=== PATIENT | female | born 1965 | race Caucasian/White ===

== ENCOUNTER → 2017-04-04 | Outpatient (CLI) | payer OTHER ==
--- NOTE | 2017-04-04 15:11 | XR ---
EXAMINATION TYPE: XR Hip Bilateral Complete DATE OF EXAM: 04/04/2017 CLINICAL HISTORY: Bilateral hip and knee pain with low back pain TECHNIQUE: AP and frogleg views of the bilateral hips were obtained. COMPARISON: None. FINDINGS: There is no acute fracture/dislocation evident in the either hip. The joint space in both femoral acetabular joints appears mildly narrowed in a cephalad direction with acetabular roof minim al sclerosis. Femoral heads maintain their normal rounded contour. Osseous mineralization is within n ormal limits. The overlying soft tissue appears unremarkable. IMPRESSION: 1. There is no acute fracture or dislocation in either hip. 2. Mild bilateral femoral acetabular arthropathy.
--- NOTE | 2017-04-04 15:12 | XR ---
EXAMINATION TYPE: XR knee complete bilateral DATE OF EXAM: 04/04/2017 CLINICAL HISTORY: Bilateral knee pain with no known injury. TECHNIQUE: Three views of the bilateral knees were obtained. COMPARISON: None. FINDINGS: There is no acute fracture/dislocation evident in either knee. The tri-compartment joint spaces appear within normal limits. The overlying soft tissue appears unremarkable. Osseous minerali zation is within normal limits. No focal soft tissue swelling. No radiographic evidence of suprapatel lar joint effusion. IMPRESSION: 1. There is no acute fracture or dislocation in the either knee. 2. Tricompartmental joint spaces are preserved. MR could be performed for evaluation of the menisci a nd ligamentous/other soft tissue structures if clinically indicated
--- NOTE | 2017-04-04 15:13 | XR ---
EXAMINATION TYPE: XR lumbosacral spine min 4V DATE OF EXAM: 04/04/2017 CLINICAL HISTORY: Bilateral hip and knee pain with low back pain and no known injuries. TECHNIQUE: Frontal, lateral, and oblique images of the lumbar spine are obtained. COMPARISON: None FINDINGS: There are 5 lumbar type vertebral bodies identified. The lumbar spine shows satisfactory alignment without evidence of acute fracture or dislocation. Vertebral body heights and disk space he ights are within normal limits. Multilevel mild degenerative disc disease is seen as facet arthropath y at L2-S1. The oblique images demonstrate minimal neural foraminal narrowing at L3-L4 on the right. The overlying soft tissue appears unremarkable. IMPRESSION: 1. No acute fracture or dislocation is seen in the lumbar spine. 2. Mild multilevel degenerative disc disease of the lumbar spine with minimal neural foraminal narrow ing on the right at L3-L4. MR could be performed to evaluate for disc herniation, spinal canal stenos is or neural foraminal narrowing degree.
== END | disposition home or self-care (01) ==
LOC: RADXRMAIN 14:10
PROVIDERS: ATTEND Family Medicine
DX: M99.73 Connective tissue and disc stenosis of intervertebral foramina of lumbar region (principal); M51.37 Other intervertebral disc degeneration, lumbosacral region; M12.852 Other specific arthropathies, not elsewhere classified, left hip; M12.851 Other specific arthropathies, not elsewhere classified, right hip; M25.562 Pain in left knee
CPT/HCPCS: 72110; 73521

== ENCOUNTER → 2017-04-29 | Outpatient (CLI) | payer OTHER ==
--- NOTE | 2017-04-29 16:00 | MR ---
EXAMINATION TYPE: MR lumbar spine wo con DATE OF EXAM: 04/29/2017 COMPARISON: Radiograph which was obtained on April 04, 2017. HISTORY: Low back pain for Unknown time TECHNIQUE: Multiplanar, multisequence images of the lumbar spine were acquired. Minimal intervertebral disc desiccation is identified. The marrow signal is appropriate. There is het erogeneous signal in the vertebral body of S1 which is felt to be due to increased mineralization and correlates with findings on the recent CT scan of the abdomen. Soft tissue structures are unremarkable. T12-L1: No central canal stenosis or foraminal narrowing is identified. L1-L2: Normal disc appearance without desiccation. No herniation, protrusion or disc bulging. No ca nal stenosis is present. Foramina are patent bilaterally. L2-L3: Normal disc appearance without desiccation. Minimal disc bulging is identified posteriorly and into both neural foramina. No canal stenosis is present. Foramina are patent bilaterally. L3-L4: Endplate spurring and minimal disc bulges contribute to mild bilateral neural foraminal narrow ing. No central canal stenosis is seen. L4-L5: There is endplate spurring as well as posterior disc bulge which does not cause significant fo raminal narrowing or central canal stenosis. L5-S1: Normal disc appearance without desiccation. No herniation, protrusion or disc bulging. No ca nal stenosis is present. Foramina are patent bilaterally. Lumbar segments are intact. No paraspinal masses are identified. Conus medullaris has a normal appe arance. IMPRESSION: Mild spondylosis is noted. Findings appear worst at the level of L3-4 were there is minimal endplate spurring and disc bulges which contributes to mild bilateral neural foraminal narrowing.
== END | disposition home or self-care (01) ==
LOC: RADMRIMAIN 14:28
PROVIDERS: ATTEND Family Medicine
DX: M99.73 Connective tissue and disc stenosis of intervertebral foramina of lumbar region (principal); M51.26 Other intervertebral disc displacement, lumbar region; M47.816 Spondylosis without myelopathy or radiculopathy, lumbar region
CPT/HCPCS: 72148

== ENCOUNTER → 2018-02-03 | Outpatient (CLI) | payer OTHER ==
--- NOTE | 2018-02-03 16:35 | MR ---
EXAMINATION TYPE: MR brain wo con DATE OF EXAM: 02/03/2018 COMPARISON: NONE HISTORY: Severe Headaches TECHNIQUE: Multiplanar, multisequence images of the brain and brainstem is performed without intravenous contras t. FINDINGS: Diffusion weighted images demonstrate no evidence of a recent infarct or other diffusion ab normality. There is no extra-axial fluid collection. Punctate focus of nonspecific white matter wolfe ges seen within the left frontal lobe on T2 FLAIR axial fat sat image 21 and within the right parieta l lobe on the same image. Few additional punctate foci of T2/FLAIR hyperintensity are scattered in th e subcortical white matter. The ventricular system and cisternal spaces are normal in size and appear ance. The brain volume is age appropriate. Midline structures demonstrate normal morphology. Partially empty sella turcica is seen. There is un dulation of the optic nerves. Prominent perineural fluid is seen surrounding the optic nerves. The cr aniocervical junction appears within normal limits. The dural venous sinuses appear patent. Mild muco javi thickening is seen within the ethmoid sinuses. The remaining visualized sinuses are clear and the globes are intact. IMPRESSION: 1. Partially empty sella turcica, undulation of the optic nerves course, and prominent perineural flu id surrounding the optic nerves although are nonspecific findings can be seen and increased intracran ial pressure and correlation with ophthalmologic exam is recommended. Additionally if there is clinic al suspicion lumbar puncture with opening pressure could be performed for further evaluation. 2. Mild burden nonspecific white matter change, given the distribution likely related to either heada ches or chronic microangiopathy. Demyelinating disease is considered unlikely.
== END | disposition home or self-care (01) ==
LOC: RADMRIMAIN 14:03
PROVIDERS: ATTEND Family Medicine
DX: R90.89 Other abnormal findings on diagnostic imaging of central nervous system (principal); R51 Headache
CPT/HCPCS: 70551

== ENCOUNTER 2018-05-26 11:35 | Emergency (ER) | payer OTHER ==
[2018-05-26 11:39] VITALS: BP 127/73; PULSE 64; RESP 18; TEMP 97.8
--- NOTE | 2018-05-26 12:35 | ED ---
General Adult HPI - General Chief complaint: Extremity Problem,Nontraumatic Stated complaint: rt arm pain x1 wk Time Seen by Provider: 05/26/18 11:59 Source: patient, RN notes reviewed, old records reviewed Mode of arrival: ambulatory Limitations: no limitations - History of Present Illness Initial comments: 53-year-old female patient past medical history of hyperlipidemia, presents to ED with approximately 4 weeks of myalgias and right upper extremity, primarily in the wrist and hand. Patient reports that her mother recently had a total joint replacement and she has been doing lots of physical exertion at the upper body assisting with activities of daily life. Patient reports that she also wakes up and morning with paresthesias in right hand on occasion. Patient denies any other complaints. Systemic: Pt denies fatigue, fever/chills, rash. Pt denies weakness, night sweats, weight loss. Neuro: Pt denies headache, visual disturbances, syncope or pre-syncope. HEENT: Pt denies ocular discharge or irritation, otalgia, rhinorrhea, pharyngitis or notable lymphadenopathy. Cardiopulmonary: Pt denies chest pain, SOB, heart palpitations, dyspnea on exertion. Abdominal/GI: Pt denies abdominal pain, n/v/d. : Pt denies dysuria, burning w/ urination, frequency/urgency. Denies new onset urinary or bowel incontinence. MSK: Pt denies loss of strength or function in extremities. Neuro: Pt denies new onset weakness. - Related Data Home Medications Medication Instructions Recorded Confirmed Acetaminophen [Tylenol Arthritis] 1,300 mg PO BID PRN 05/26/18 05/26/18 Previous Rx's Medication Instructions Recorded Ibuprofen [Motrin] 600 mg PO Q6HR PRN #40 day 05/26/18 Allergies Allergy/AdvReac Type Severity Reaction Status Date / Time aspirin AdvReac Nausea Verified 05/26/18 11:56 Review of Systems ROS Statement: Those systems with pertinent positive or pertinent negative responses have been documented in the HPI. ROS Other: All systems not noted in ROS Statement are negative. Past Medical History Past Medical History: Diabetes Mellitus, Hyperlipidemia History of Any Multi-Drug Resistant Organisms: None Reported Past Surgical History: Bladder Surgery Additional Past Surgical History / Comment(s): left arm cyst removed Past Psychological History: Anxiety Smoking Status: Never smoker Past Alcohol Use History: None Reported Past Drug Use History: None Reported General Exam - General Exam Comments Initial Comments: Constitutional: NAD, AOX3, Pt has pleasant affect. HEENT: NC/AT, trachea midline, neck supple, no lymphadenopathy. Posterior pharynx non erythematous, without exudates. External ears appear normal, without discharge. Mucous membranes moist. Eyes PERRLA, EOM intact. There is no scleral icterus. No pallor noted. Cardiopulmonary: RRR, no murmurs, rubs or gallops, no JVD noted. Lungs CTAB in anterior and posterior verdugo. No peripheral edema. Abdominal exam: Abdomen soft and non-distended. Abdomen non-tender to palpation in all 4 quadrants. Bowel sounds active in LLQ. No hepatosplenomegaly. No ecchymosis Neuro: CN II-XII grossly intact. No nuchal rigidity. MSK: Upper extremities nontender to palpation. Full active range of motion. Neurovascularly intact. Radial pulse +2 bilaterally. 5 out of 5 strength in biceps and triceps. No posterior calf tenderness bilaterally, homans sign negative bilaterally. Posterior tibialis and radial pulse +2 bilaterally. Sensation intact in upper and lower extremities. Full active ROM in upper and lower extremities, 5/5 stregnth. Limitations: no limitations Course Vital Signs 05/26/18 11:37 Temperature 97.8 F Pulse Rate 64 Respiratory 18 Rate Blood Pressure 127/73 O2 Sat by Pulse 98 Oximetry Medical Decision Making - Medical Decision Making 53-year-old female patient past medical history of hyperlipidemia, presents to ED with approximately 4 weeks of myalgias and right upper extremity, primarily in the wrist and hand. Patient reports that her mother recently had a total joint replacement and she has been doing lots of physical exertion at the upper body assisting with activities of daily life. Patient reports that she also wakes up and morning with paresthesias in right hand on occasion. Patient denies any other complaints. Patient vital signs stable, afebrile. Upper extremities nontender to palpation. Full active range of motion. Neurovascularly intact. Radial pulse +2 bilaterally. 5 out of 5 strength in biceps and triceps. Shared decision making, patient comfortable with no films being taken, will follow-up with primary care physician and orthopedic referral for continued evaluation. Patient prescribed ibuprofen to use for inflammation and pain. Patient will return to ED if new signs or symptoms develop or if condition worsens in any way. Case dsicussed with Dr. Segura. Disposition Clinical Impression: Myalgia, Arm pain Disposition: HOME SELF-CARE Condition: Stable Instructions (If sedation given, give patient instructions): Musculoskeletal Pain (ED) Additional Instructions: Patient to adhere to previously discussed treatment plan and will take medication(s) as directed. Patient to follow up with PCP in 1-2 days. Patient to return to ED if symptoms do not improve. Please follow-up with primary care physician in one to 2 days. Please contact orthopedic surgeon for continued evaluation. Please use scheduled ibuprofen every 6 hours for 3 days. Then use as needed for pain. May want to consider "neutral wrist splints" for possible carpal tunnel. Prescriptions: Ibuprofen [Motrin] 600 mg PO Q6HR PRN #40 day PRN Reason: Pain Is patient prescribed a controlled substance at d/c from ED?: No Referrals: Colton Dukes DO [Primary Care Provider] - 1-2 days Salo Schultz MD [STAFF PHYSICIAN] - 1-2 days
--- NOTE | 2018-05-26 12:47 | ED ---
General Adult HPI - General Chief complaint: Extremity Problem,Nontraumatic Stated complaint: rt arm pain x1 wk Time Seen by Provider: 05/26/18 11:59 Source: patient, RN notes reviewed, old records reviewed Mode of arrival: ambulatory Limitations: no limitations - History of Present Illness Initial comments: Patient reports that she had some mild nausea while taking aspirin. Pt denies any history of serious allergic reactions. Pt states that she has taken motrin in the past without difficulty. - Related Data Home Medications Medication Instructions Recorded Confirmed Acetaminophen [Tylenol Arthritis] 1,300 mg PO BID PRN 05/26/18 05/26/18 Previous Rx's Medication Instructions Recorded Ibuprofen [Motrin] 600 mg PO Q6HR PRN #40 day 05/26/18 Allergies Allergy/AdvReac Type Severity Reaction Status Date / Time aspirin AdvReac Nausea Verified 05/26/18 11:56 Review of Systems ROS Statement: Those systems with pertinent positive or pertinent negative responses have been documented in the HPI. ROS Other: All systems not noted in ROS Statement are negative. Past Medical History Past Medical History: Diabetes Mellitus, Hyperlipidemia History of Any Multi-Drug Resistant Organisms: None Reported Past Surgical History: Bladder Surgery Additional Past Surgical History / Comment(s): left arm cyst removed Past Psychological History: Anxiety Smoking Status: Never smoker Past Alcohol Use History: None Reported Past Drug Use History: None Reported General Exam Limitations: no limitations Course Vital Signs 05/26/18 11:37 Temperature 97.8 F Pulse Rate 64 Respiratory 18 Rate Blood Pressure 127/73 O2 Sat by Pulse 98 Oximetry Disposition Clinical Impression: Myalgia, Arm pain Disposition: HOME SELF-CARE Condition: Stable Instructions (If sedation given, give patient instructions): Musculoskeletal Pain (ED) Additional Instructions: Patient to adhere to previously discussed treatment plan and will take medication(s) as directed. Patient to follow up with PCP in 1-2 days. Patient to return to ED if symptoms do not improve. Please follow-up with primary care physician in one to 2 days. Please contact orthopedic surgeon for continued evaluation. Please use scheduled ibuprofen every 6 hours for 3 days. Then use as needed for pain. May want to consider "neutral wrist splints" for possible carpal tunnel. Prescriptions: Ibuprofen [Motrin] 600 mg PO Q6HR PRN #40 day PRN Reason: Pain Is patient prescribed a controlled substance at d/c from ED?: No Referrals: Colton Dukes DO [Primary Care Provider] - 1-2 days Salo Schultz MD [STAFF PHYSICIAN] - 1-2 days
== END 2018-05-26 13:16 | disposition home or self-care (01) ==
LOC: EC 11:35
DX: M79.18 Myalgia, other site (principal); R20.2 Paresthesia of skin; Z96.60 Presence of unspecified orthopedic joint implant; Z88.6 Allergy status to analgesic agent
CPT/HCPCS: 99283

== ENCOUNTER → 2018-11-07 | Outpatient (CLI) | payer OTHER ==
--- NOTE | 2018-11-07 22:20 | XR ---
EXAMINATION TYPE: XR cervical spine comp DATE OF EXAM: 11/07/2018 TECHNIQUE: Frontal, lateral, oblique, and open mouth view of the cervical spine are obtained. HISTORY: M25.532, M54.2, M25.519 COMPARISON: None FINDINGS: The cervical spine is visualized in its entirety from C1 thru the top of T1 level, there i s grade 1 retrolisthesis C4 on C5 without evidence of acute fracture or dislocation. The pre-vertebr al soft tissue appears within normal limits. The C1-C2 articulation is within normal limits on the o pen mouth view. Vertebral body heights are maintained. Some ossific fusion of the C5 and C6 vertebra are seen. There is moderate to advanced disc space narrowing with mild to moderate spurring C6-C7 lev el. The oblique images are within normal limits. Overlying soft tissue is unremarkable. IMPRESSION: As above.
--- NOTE | 2018-11-07 22:21 | XR ---
EXAMINATION TYPE: XR wrist limited LT DATE OF EXAM: 11/07/2018 CLINICAL HISTORY: Left wrist pain. TECHNIQUE: Frontal and lateral images of the left wrist are obtained. COMPARISON: None FINDINGS: There is no acute fracture/dislocation evident in the left wrist. Mild radiocarpal joint s pace narrowing is seen. Mild narrowing base of first metacarpal. The overlying soft tissue appears u nremarkable. IMPRESSION: As above.
--- NOTE | 2018-11-07 22:22 | XR ---
EXAMINATION TYPE: XR shoulder limited bilateral DATE OF EXAM: 11/07/2018 CLINICAL HISTORY: Bilateral shoulder pain. TECHNIQUE: Two views of the bilateral shoulders are obtained. COMPARISON: None. FINDINGS: There is no acute fracture/dislocation evident in either shoulder. Ciru-nf-[id number] symmet khari narrowing bilateral acromioclavicular joints is seen. Glenohumeral joints are maintained bilatera lly. Still acromion morphology is unremarkable bilaterally. The visualized ribs are intact and unrema rkable bilaterally. IMPRESSION: As above.
== END | disposition home or self-care (01) ==
LOC: RADXRMAIN 16:19
PROVIDERS: ATTEND Internal Medicine
DX: M48.02 Spinal stenosis, cervical region (principal); M43.12 Spondylolisthesis, cervical region; M25.812 Other specified joint disorders, left shoulder; M25.811 Other specified joint disorders, right shoulder; M25.832 Other specified joint disorders, left wrist
CPT/HCPCS: 72050

== ENCOUNTER → 2018-12-05 | Outpatient (CLI) | payer OTHER ==
--- NOTE | 2018-12-06 08:01 | MR ---
MRI CERVICAL SPINE: CLINICAL HISTORY: Neck pain. TECHNIQUE: Multiplanar, multisequence imaging of the cervical spine is performed without IV contrast. COMPARISON: Cervical spine x-ray November 07, 2018. FINDINGS: Coronal images redemonstrate dextroconvex scoliotic curvature centered at C5-C6 level with reactive levoconvex scoliosis in the upper thoracic spine. Sagittal images of the cervical spine show the craniocervical junction to appear within normal limits. The cervical and upper thoracic spinal cord is normal in caliber and signal. There is grade 1 retrolisthesis C3 on C4 and C4 on C5. The lamine tebral body heights are normal. Moderate to severe disc space narrowing C5-C6 level is redemonstrated . The bone marrow signal intensity is within normal limits. Somewhat empty sella morphology noted wh ich correlates with brain MRI February 03, 2018 Axial images show the C2-C3 level to appear within normal limits. Axial images at C3-C4 level shows spondylolisthesis with left paracentral spur disc complex, there is effacement of the anterior thecal sac, there is mild bilateral neural foraminal narrowing due to unc overtebral facet spurring. Axial images at C4-C5 level show spondylolisthesis with right paracentral spur disc complex effacing anterior thecal sac, there is mild right and [id number] left-sided neural foraminal narrowing d ue to uncovertebral facet spur disc complex. Axial images at C5-C6 level fall within normal limits. Axial images at C6-C7 level showed most prominent focal central disc protrusion effacing the anterior thecal sac with some flattening of the ventral surface of spinal cord, bilateral neuroforamina are t hought patent. Axial images at C7-T1 level show slight lobulated central and right paracentral/foraminal protrusion mildly effacing the anterior thecal sac, bilateral neural foramina remain patent. IMPRESSION: Scoliotic curvature with multilevel degenerative changes as detailed above. Most prominen t disc space narrowing is C5-C6 level. Most prominent spondylolisthesis and degenerative changes are C3-C4 and C4-C5 level. Largest disc herniation noted C6-C7 level.
== END | disposition home or self-care (01) ==
LOC: RADMRIMAIN 12:05
PROVIDERS: ATTEND Internal Medicine
DX: M48.02 Spinal stenosis, cervical region (principal); M50.223 Other cervical disc displacement at C6-C7 level; M43.12 Spondylolisthesis, cervical region; M47.812 Spondylosis without myelopathy or radiculopathy, cervical region; M41.82 Other forms of scoliosis, cervical region
CPT/HCPCS: 72141

== ENCOUNTER → 2019-01-25 | Outpatient (CLI) | payer OTHER | LOC: RADXRMAIN 10:08 | PROVIDERS: ATTEND Internal Medicine | DX: Z53.9 Procedure and treatment not carried out, unspecified reason (principal) ==

== ENCOUNTER → 2019-01-30 | Outpatient (CLI) | payer OTHER ==
--- NOTE | 2019-01-30 11:22 | XR ---
Left shoulder HISTORY: Left shoulder pain 3 views the left shoulder Comparison to prior exam 11/07/2018 There is no interval change. IMPRESSION: Stable exam. No acute abnormality. No fracture or dislocation. Shoulder MRI may be of russ efit.
== END | disposition home or self-care (01) ==
LOC: RADXRMAIN 10:19
PROVIDERS: ATTEND Internal Medicine
DX: R52 Pain, unspecified (principal)

== ENCOUNTER → 2019-02-21 | Outpatient (CLI) | payer OTHER ==
[2019-02-21 11:57] VITALS: BP 104/72; PULSE 59; RESP 18
--- NOTE | 2019-02-22 14:31 | P.PAINCN ---
History of Present Illness - Reason for Consult Consult date: 02/21/19 - History of Present Illness This is a 54-year-old patient referred by Dr. Norris with a chief complaint of chronic pain in right wrist, radiating to right lateral elbow. This began a few weeks after a fall on ice in April 2018. She also has pain in her left wrist and left trapezius muscle. Pain is rated as 3/10, described as a tightness/soreness, worse with positioning and pressure and better with activity and extra strength Tylenol. She has been diagnosed with carpal tunnel on the right side and wears a wrist splint. She reports that she had an EMG done and she was told that she has carpal tunnel syndrome. We do not have this report with us. She does report numbness in her right thumb and index finger. She was following with [facility], who recommended a carpal tunnel steroid injection, however she was unable to follow with them due to a change in her insurance. She has undergone carpal tunnel surgery on the left side in the past. Of note, she has no significant neck pain. She does report being fairly stressed at home, she has been caring for her mother who recently underwent knee replacement surgery. Patient also denies new-onset weakness, bowel/bladder incontinence, or any other signs or symptoms of cauda equina syndrome. There are no signs of acute intoxication, and no indications of medication diversion or overuse. Patient HAS NOT had neck surgery him a however she has undergone left-sided carpal tunnel surgery. Patient HAS NOT had injections previously. Patient HAS NOT had physical therapy recently. In addition to above, 13-point review of systems is also negative for chest pain, shortness of breath, changes in vision, changes in hearing, new onset weakness, abdominal pain, diarrhea, extreme fatigue, malaise, fever, skin changes, homicidal or suicidal ideation, or bowel or bladder incontinence. She does report high stress levels. Past Medical History Past Medical History: Diabetes Mellitus, Hyperlipidemia, Musculoskeletal Disorder, Syncope Additional Past Medical History / Comment(s): "pre-diabetic", checked every few months w/lab test, as a teenager would pass out periodically, nothing like that for years History of Any Multi-Drug Resistant Organisms: None Reported Past Surgical History: Orthopedic Surgery Additional Past Surgical History / Comment(s): left arm cyst removed, carpal tunnel surg. left wrist, delaney corrective surg. feet Past Anesthesia/Blood Transfusion Reactions: Previous Problems w/ Anesthesia Additional Past Anesthesia/Blood Transfusion Reaction / Comm: heart racing @dentist x2 w/procedures-not sure what medication was Past Psychological History: Anxiety Smoking Status: Never smoker Past Alcohol Use History: None Reported Past Drug Use History: None Reported Medications and Allergies Home Medications Medication Instructions Recorded Confirmed Type Acetaminophen [Tylenol Extra 500 mg PO Q6H PRN 02/18/19 02/21/19 History Strength] Allergies Allergy/AdvReac Type Severity Reaction Status Date / Time aspirin AdvReac Nausea Verified 02/18/19 15:15 Physical Exam Physical exam: Vital Signs: Reviewed in EMR GENERAL: Well appearing, in no acute distress PSYCH: Mood and affect is appropriate. Awake, alert, and oriented SKIN: Skin color, texture, turgor normal, no rashes or lesions HEENT: Normocephalic, atraumatic. EOM intact CV: No pedal edema RESP: Respirations are unlabored, no audible wheezing GI: Abdomen non-distended MUSCULOSKELETAL: Bilateral upper strength is normal and symmetric. No atrophy or tone abnormalities are noted. Tenderness to palpation over the lateral epicondyle on the right side. Tenderness to palpation of left trapezius with palpable trigger points. Left shoulder range of motion is within normal limits. No tenderness of left shoulder joint. Neck: No pain to palpation over the cervical paraspinous muscles. Spurling negative, Balderas's sign negative. No pain with neck flexion, extension, or lateral flexion. No obvious deformity or signs of trauma. Normal cervical lordotic curve and normal cervical spine range of motion Extremities: Peripheral joint ROM is full and pain free without obvious instability or laxity in all four extremities. No edema or skin discolorations noted. Gait: Gait is normal NEUR: Bilateral upper extremity coordination and muscle stretch reflexes are physiologic and symmetric. No loss of sensation is noted. Cranial nerves are grossly intact. Results Results: Imaging: MRI cervical spine done at [facility] on 12/05/2018 shows scoliotic curvature and multilevel degenerative disc disease with disc space narrowing at C5-6. Prominent degenerative changes at C3-4 as well as C4-5 stop no high-grade spinal canal stenosis. Moderate left-sided neuroforaminal narrowing at C4-5 Assessment and Plan Assessment: Assessment: 1. Right-sided carpal tunnel syndrome 2. Right-sided lateral epicondylitis 3. Left trapezius myofascial pain syndrome Plan: Plan: 1. Explanation: We had a lengthy discussion regarding her symptoms and her symptoms are unlikely to be related to her cervical spine and more likely to be from peripheral disease processes such as carpal tunnel syndrome and lateral epicondylitis. 2. Opioid agreement: None 3. Counseling: On the importance of exercise 4. Procedures: None at this point 5. Consultations: To a hand surgeon for evaluation of carpal tunnel syndrome on the right side. Patient was provided with a list of available hand surgeons in the area. Patient was also given a referral for physical therapy for myofascial pain in the left trapeziusultrasound, heat, massage therapy as well as hand strengthening exercises 6. Investigations: None, MRI cervical spine reviewed 7. Medications: Patient was encouraged to take [id number] NSAIDs in addition to extra strength Tylenol 8. Disposition: When necessary PQRS Measure Charge Sheet Measure #130: Documentation of Current Meds in Medical Chart: Patient's medications documented in chart Measure #226: Tobacco Use: Screen & Cessation Intervention: Pt not a tobacco user Measure #111: Pneumonia Vaccination: Pneumococcal vaccine NOT administered or previously given Measure #47: Advance Care Plan: Advance care planning discussed & documented, pt chose/unable to give Measure #412: Opioid Treatment Agreement: No documentation of signed opioid treatment agreement Measure #317: Preventitive Care & Scrn High Bld Press & F/U: Normal blood pressure, f/u not required Measure #128: Body Mass Index (BMI) Screening & Follow-up: BMI documented ABOVE normal parameters - f/u documented Measure #131: Pain Assessment & Follow-up: Pain positive & plan documented, Follow-up scheduled Measure #431: Unhealthy Alcohol Use Preventative Care & Scrn: Patient not identified as an unhealthy alcohol user PQRS Narrative: Smoking Status Never smoker Blood Pressure 104/72 Pain Intensity [Bilateral 3 Shoulder] Scale Used Numeric (1 - 10) Hx Alcohol Use (MH) No Home Medications: Ambulatory Orders Acetaminophen [Tylenol Extra Strength] 500 mg PO Q6H PRN 02/18/19
== END | disposition home or self-care (01) ==
LOC: PNWHC3 11:26
PROVIDERS: ATTEND Anesthesiology
DX: M79.18 Myalgia, other site (principal); M77.11 Lateral epicondylitis, right elbow; G56.01 Carpal tunnel syndrome, right upper limb; Z79.899 Other long term (current) drug therapy; Z88.6 Allergy status to analgesic agent; Z79.1 Long term (current) use of non-steroidal anti-inflammatories (NSAID)
CPT/HCPCS: 99211

== ENCOUNTER 2019-04-12 11:41 | Day surgery (SDC) | payer OTHER ==
[2019-04-09 15:02] VITALS: BMI 35.6
[~2019-04-12 11:41] MED LIST: DEXAMETHASONE SOD PHOSPHATE 10 MG/ML 1 ML VIAL IV ONE; HYDROmorphone 0.5 MG/0.5 ML SYRINGE IVP PRN; LACTATED RINGERS 1,000 ML IV SCH; LIDOCAINE 1% (10MG/ML) FOR IV START INTRADERMA PRN; ONDANSETRON 4 MG/2 ML VIAL IVP ONE; Pre Op ABX Message 1 EACH MISC MISCELLANE ONE
[2019-04-12 12:25] VITALS: TEMP 97.2
[2019-04-12 12:52] LABS: Glucose,Whole Blood 88 mg/dL (75-99)
[2019-04-12] MEDS ORDERED: KETOROLAC 30 MG/ML 1 ML VIAL ONE (14:59)
[2019-04-12] MEDS ORDERED: fentaNYL (PF) 50 MCG/ML 2 ML AMP ONE (14:59)
[2019-04-12] MEDS ORDERED: MIDAZOLAM 2 MG/2 ML VIAL ONE (14:59)
[2019-04-12] MEDS ORDERED: PROPOFOL 10 MG/ML 20 ML VIAL IV ONE (14:59)
[2019-04-12] MEDS ORDERED: LIDOCAINE 1% INJ 10MG/ML (20 ML MDV) ONE (14:59)
[2019-04-12] MEDS ORDERED: LIDOCAINE 1%-EPI 1:100,000 20 ML VIAL SQ ONE (15:04)
[2019-04-12] MEDS ORDERED: ROPIVACAINE 5MG/ML 20ML VIAL MISCELLANE ONE (15:04)
[2019-04-12 16:11] VITALS: RESP 16
[2019-04-12 16:29] VITALS: BP 97/66; PULSE 60
--- NOTE | 2019-04-17 19:30 | P.OP ---
Date of Procedure: 04/12/19 Preoperative Diagnosis: Right carpal tunnel syndrome Postoperative Diagnosis: Right carpal tunnel syndrome Procedure(s) Performed: Right endoscopic carpal tunnel release Anesthesia: MAC, local Surgeon: Vin Sharp Estimated Blood Loss (ml): 2 Condition: stable Disposition: PACU Indications for Procedure: The patient is a 54-year-old female who was diagnosed with right carpal tunnel syndrome. Treatment options (and associated risks and benefits) were discussed in the office. The patient elected to undergo surgical release. In preop, additional questions were addressed and the patient wished to proceed with surgery. Consent forms were signed. The operative site was confirmed and marked. Description of Procedure: The patient was positioned supine with the right arm on a hand table. A tourniquet was applied. Anesthesia was administered uneventfully. A time-out was performed, confirming patient identifiers, the operative side, site and the procedure to be performed: all team members expressed agreement. Using aseptic technique, local anesthetic was injected into the subcutaneous tissues around the planned incision. The right upper extremity was then prepped and draped in standard, sterile fashion. The limb was exsanguinated with an Esmarch and the tourniquet was inflated. Loupe magnification was used throughout the case for optimum visualization. A 1.5 cm transverse incision was marked proximal to the wrist flexion crease, in line with the radial border of the ring finger. The skin was sharply incised and the subcutaneous tissues were bluntly spread. The distal aspect of the palmaris longus expansion was quite broad. This was causing additional compression and was partially released on its ulnar aspect. The volar carpal fascia was identified and sharply incised in line with the path of the nerve. The median nerve was visualized below. A synovial elevator was inserted and used to release adhesions on the underside of the transverse carpal ligament, which was found to be somewhat short. The washboard effect was palpable. A dilator was inserted to sound and enlarge the carpal tunnel. The hamate hook was palpable ulnarly. The side-specific guide and camera were inserted. The transverse carpal ligament was clearly visualized above. The distal edge of the ligament was identified and palpated with a probe. A rasp was used to clear the remaining synovial adhesions. The endoscopic blade was inserted and the distal half of the ligament was sharply incised. Residual distal transverse fibers were released and then the proximal portion of the ligament was divided. Wide release of ligament was visually confirmed. The camera and guide were removed. Proximal to the incision, the volar carpal/antebrachial fascia was released with scissors under direct visualization. The tourniquet was released after 11 minutes at 250 mmHg. Hemostasis was obtained with manual pressure. A small persistent bleeder on the ulnar side of the incision was coagulated with bipolar cautery. Excellent hemostasis was achieved. The wound was thoroughly irrigated with normal saline. The incision was closed with interrupted 4-0 Nylon sutures. Additional local anesthetic with epinephrine was injected for adjunctive postoperative pain control and h emostasis. A soft, sterile dressing was applied. All sponge, needle and instrument counts were correct at the end of the case. The patient tolerated the procedure well and was transferred to recovery in stable condition.
== END 2019-04-12 16:37 | disposition home or self-care (01) ==
LOC: OR 11:41
PROVIDERS: ATTEND Orthopaedic Surgery
DX: G56.01 Carpal tunnel syndrome, right upper limb (principal); E78.5 Hyperlipidemia, unspecified; M19.90 Unspecified osteoarthritis, unspecified site; K08.89 Other specified disorders of teeth and supporting structures; Q90.9 Down syndrome, unspecified; Z87.898 Personal history of other specified conditions; Z79.899 Other long term (current) drug therapy; Z97.3 Presence of spectacles and contact lenses; Z88.6 Allergy status to analgesic agent; Z88.1 Allergy status to other antibiotic agents; Z91.048 Other nonmedicinal substance allergy status; Z98.890 Other specified postprocedural states; Z83.3 Family history of diabetes mellitus
CPT/HCPCS: 29848; J2250; J1100; J2405; J2001; J3010; J1885; J2704; J2795

== ENCOUNTER → 2020-11-02 | Outpatient (CLI) | payer OTHER ==
[2020-11-02 19:02] LABS: HCT 47.8 % (37.2-46.3); HGB 14.9 g/dL (12.0-15.0); MCH 29.3 pg (27.0-32.0); MCHC 31.2 g/dL (32.0-37.0); MCV 94.1 fL (80.0-97.0); Mean Platelet Volume 12.2 fL (9.5-12.2); Platelet Count 203 X 10*3/uL (140-440); RBC 5.08 X 10*6/uL (4.10-5.20); RDW 12.9 % (11.5-14.5); WBC 5.15 X 10*3/uL (4.50-10.00)
== END | disposition home or self-care (01) ==
LOC: LABWHC1 11:57
PROVIDERS: ATTEND Family Medicine
DX: R73.03 Prediabetes (principal)
CPT/HCPCS: 36415; 85027

== ENCOUNTER → 2020-11-13 | Outpatient (CLI) | payer OTHER ==
--- NOTE | 2020-11-14 11:08 | CT ---
EXAMINATION TYPE: CT soft tissue neck w con DATE OF EXAM: 11/13/2020 7:35 PM COMPARISON: None HISTORY: NECK PAIN CT DLP: 694.8 mGycm Automated exposure control for dose reduction was used. CONTRAST: CT scan of the neck is performed following with IV Contrast, patient injected with 80 mL of Isovue 30 0. Axial images are obtained, coronal and sagittal reformatted images are reviewed. FINDINGS: There is some patchy posterior probable atelectatic change in the upper lobes Airway: There is an asymmetric appearance of the level of the hyoid bone, soft tissue is present in t he region of the left piriform sinus, suspect some thickening along the pharyngeal mucosal space, axi al image 55 Parotid/submandibular glands: No gross abnormality seen. Carotid/Vascular Structures: Patent Osseous Structures: There is a spinal curvature, degenerative disc change. Other: Streak artifact is present due to patient's dental amalgam IMPRESSION: Correlate for pharyngitis, cannot exclude abnormal soft tissue at the level of the pirif orm sinus on the left, consider direct visualization. Degenerative disc disease and additional findin gs above.
== END | disposition home or self-care (01) ==
LOC: RADCTMAIN 17:47
PROVIDERS: ATTEND Family Medicine
DX: M54.2 Cervicalgia (principal)
CPT/HCPCS: 82565; 84520; 70491; 36415; Q9967

== ENCOUNTER → 2021-01-11 | Outpatient (CLI) | payer OTHER ==
--- NOTE | 2021-01-11 11:59 | XR ---
EXAMINATION TYPE: XR knee limited RT DATE OF EXAM: 01/11/2021 COMPARISON: 04/04/2017 HISTORY: Knee pain TECHNIQUE: 2 view right knee FINDINGS: No joint effusion is evident. Joint spaces are preserved. No acute fracture or dislocation is evident. IMPRESSION: 1. Normal 2 view right knee
== END | disposition home or self-care (01) ==
LOC: RADXRMAIN 11:29
PROVIDERS: ATTEND Family Medicine
DX: M25.561 Pain in right knee (principal)

== ENCOUNTER → 2021-01-11 | Outpatient (CLI) | payer OTHER ==
--- NOTE | 2021-01-12 10:39 | MM ---
Reason for exam: screening (asymptomatic). Last mammogram was performed 2 years and 1 month ago. History: Patient is postmenopausal. Physical Findings: A clinical breast exam by your physician is recommended on an annual basis and results should be correlated with mammographic findings. MG Screening Mammo w CAD Bilateral CC and MLO view(s) were taken. Prior study comparison: November 27, 2018, mammogram, performed at [facility]. November 22, 2017, mammogram, performed at [facility]. There are scattered fibroglandular densities. There are benign appearing round calcifications bilaterally. There is no discrete abnormality. ASSESSMENT: Benign, BI-RAD 2 RECOMMENDATION: Routine screening mammogram of both breasts in 1 year.
== END | disposition home or self-care (01) ==
LOC: RADMAMWWP 15:04
PROVIDERS: ATTEND Family Medicine
DX: Z12.31 Encounter for screening mammogram for malignant neoplasm of breast (principal); Z78.0 Asymptomatic menopausal state
CPT/HCPCS: 77067

== ENCOUNTER → 2022-02-14 | Outpatient (CLI) | payer OTHER ==
--- NOTE | 2022-02-15 09:43 | CA ---
Transthoracic Echo Report Name: Nery Holland Age: 57 Gender: F : 1965 Exam Date: 02/14/2022 14:03 Exam Location: [facility] Ht (in): 59 Wt (lb): 163 Ordering Physician: Andrés Feng MD Attending/Referring Phys: Manager Loan Ana Quinn RDCS Procedure CPT: Indications: R07.89 other chest pain Cardiac Hx: Technical Quality: Contrast 1: Total Dose (mL): Contrast 2: Total Dose (mL): MEASUREMENTS (Male / Female) Normal Values 2D ECHO LV Diastolic Diameter PLAX 4.9 cm 4.2 - 5.9 / 3.9 - 5.3 cm LV Systolic Diameter PLAX 2.7 cm IVS Diastolic Thickness 0.6 cm 0.6 - 1.0 / 0.6 - 0.9 cm LVPW Diastolic Thickness 1.1 cm 0.6 - 1.0 / 0.6 - 0.9 cm LV Relative Wall Thickness 0.3 RV Internal Dim ED PLAX 2.1 cm LA Systolic Diameter LX 3.0 cm 3.0 - 4.0 / 2.7 - 3.8 cm LA Volume 36.1 cm??? 18 - 58 / 22 - 52 cm??? M-MODE Aortic Root Diameter MM 2.5 cm LA Systolic Diameter MM 3.2 cm LA Ao Ratio MM 1.2 MV E Point Septal Separation 0.2 cm AV Cusp Separation MM 1.7 cm DOPPLER MV Area PHT 4.0 cm??? Mitral E Point Velocity 60.0 cm/s Mitral A Point Velocity 86.9 cm/s Mitral E to A Ratio 0.7 MV Deceleration Time 191.2 ms MV E' Velocity 6.9 cm/s Mitral E to MV E' Ratio 8.7 FINDINGS Left Ventricle Normal LV size and systolic function with ejection fraction of 55-60%. There is mild concentric LVH noted Right Ventricle Normal right ventricular size and function. Right ventricular systolic pressure within normal limits. Right Atrium Normal right atrial size. Left Atrium Normal left atrial size. Mitral Valve Structurally normal mitral valve. Mild mitral regurgitation. Aortic Valve Trileaflet aortic valve. Aortic valve sclerosis. Mild calcification of aortic valve leaflets without restriction. Tricuspid Valve Structurally normal tricuspid valve. Mild tricuspid regurgitation. Pulmonic Valve Structurally normal pulmonic valve. Pericardium No pericardial effusion Aorta Normal size aortic root and proximal ascending aorta. CONCLUSIONS Normal LV size and systolic function with aortic valve calcification sclerosis no restriction. No significant abnormality in the Doppler exam. No pericardial effusion Previewed by: Dr. Andressa Avelar MD (Electronically Signed) Final Date: 15 February 2022 09:42
== END | disposition home or self-care (01) ==
LOC: RADECHMAIN 13:51
PROVIDERS: ATTEND Family Medicine
DX: I35.0 Nonrheumatic aortic (valve) stenosis (principal); R07.89 Other chest pain
CPT/HCPCS: 93306

== ENCOUNTER → 2022-02-14 | Outpatient (CLI) | payer OTHER ==
--- NOTE | 2022-02-15 18:58 | MM ---
Reason for Exam: Screening (asymptomatic). Last mammogram was performed 1 year(s) and 1 month(s) ago. Patient History: Menarche at age 14. Patient has no children. Postmenopausal. Risk Values: Alix 5 year model risk: 1.4%. NCI Lifetime model risk: 8.9%. Prior Study Comparison: 11/22/2017 Screening Mammogram, [facility]. 11/27/2018 Screening Mammogram, [facility]. 01/11/2021 Bilateral Screening Mammogram, [facility]. Tissue Density: There are scattered fibroglandular densities. Findings: Analyzed By CAD. Pattern appears symmetrical and stable. No significant interval change is evident. A few scattered benign punctate calcifications are present bilaterally. No suspicious groups of microcalcifications, spiculated or lobular masses, architectural distortion or other secondary signs of malignancy are mammographically apparent. Overall Assessment: Benign, BI-RAD 2 Management: Screening Mammogram of both breasts in 1 year. A negative mammogram report should not preclude additional follow up of suspicious palpable abnormalities. Patient should continue monthly self breast exam. A clinical breast exam by your physician is recommended on an annual basis and results should be correlated with mammographic findings. Electronically signed and approved by: Leo James D.O. Radiologis
== END | disposition home or self-care (01) ==
LOC: RADMAMWWP 14:22
PROVIDERS: ATTEND Family Medicine
DX: Z12.31 Encounter for screening mammogram for malignant neoplasm of breast (principal); Z78.0 Asymptomatic menopausal state
CPT/HCPCS: 77067

== ENCOUNTER → 2022-09-05 | Outpatient (CLI) | payer OTHER ==
--- NOTE | 2022-09-05 14:54 | XR ---
EXAMINATION TYPE: XR shoulder limited LT DATE OF EXAM: 09/05/2022 CLINICAL HISTORY: pain COMPARISON: NONE TECHNIQUE: Three views of the left shoulder are obtained. FINDINGS: There is no acute fracture/dislocation evident. The acromioclavicular and glenohumeral rebekah int spaces appear within normal limits. The visualized ribs are intact and unremarkable. IMPRESSION: 1. There is no acute fracture or dislocation. ICD 10 NO FRACTURE, INITIAL EVALUATION
== END | disposition home or self-care (01) ==
LOC: RADXRMAIN 14:17
PROVIDERS: ATTEND Family Medicine
DX: M25.512 Pain in left shoulder (principal)

== ENCOUNTER → 2022-10-03 | Outpatient (CLI) | payer OTHER ==
--- NOTE | 2022-10-03 11:39 | MR ---
EXAMINATION TYPE: MR shoulder LT wo con DATE OF EXAM: 10/03/2022 COMPARISON: X-ray 09/05/2022 HISTORY: Left shoulder pain, lifting injury TECHNIQUE: Multiplanar, multisequence imaging of the left shoulder is performed without contrast. FINDINGS: Rotator Cuff: Subscapularis has a normal appearance. Excellent there is mild increased signal within the disc laura n of the spine is posterior fibers compatible with mild tendinosis. There is no evidence of rotator c uff tear. There is bursal scuffing and a small amount of fluid in the subacromial bursa adjacent to the anterio r fibers of the supraspinatus tendon near its insertion compatible with tendinosis. No true thickness tear or retraction. Acromioclavicular Joint: Mild hypertrophic change of the AC joint. There does appear to be mild mass effect and impingement upon the supraspinatus tendon and muscle. Very minimal edema within the AC jeison nt. Glenohumeral Joint: No sizable joint effusion. There is no erosive changes. Glenohumeral ligaments ap pear intact. Labrum: The labrum appears grossly intact given limitation of non-arthrogram study. Biceps Tendon: The long head of biceps is in normal location within bicipital groove. There is increa sed fluid surrounding the tendon. Intracapsular portion of the tendon and biceps anchor intact. Bone marrow signal: No focal abnormal marrow signal is appreciated. Other: No additional significant abnormality is appreciated. IMPRESSION: 1. Mild impingement with mild distal tendinosis of the supraspinatus and infraspinatus tendons near t he insertion. No definite rotator cuff tearing. There is bursal scuffing along the anterior fibers of the insertion of the supraspinatus tendon. 2. Mild bicipital tendinosis.
== END | disposition home or self-care (01) ==
LOC: RADMRIMAIN 08:53
PROVIDERS: ATTEND Family Medicine
DX: M25.812 Other specified joint disorders, left shoulder (principal); M67.814 Other specified disorders of tendon, left shoulder; M75.22 Bicipital tendinitis, left shoulder; S46.902A Unspecified injury of unspecified muscle, fascia and tendon at shoulder and upper arm level, left arm, initial encounter; X50.9XXA Other and unspecified overexertion or strenuous movements or postures, initial encounter

== ENCOUNTER → 2023-04-13 | Outpatient (CLI) | payer OTHER ==
--- NOTE | 2023-04-13 12:07 | CT ---
EXAMINATION TYPE: CT brain wo con DATE OF EXAM: 04/13/2023 COMPARISON: MRI 02/03/2018 INDICATION: Headache, pt states trunk door fell on her head about 3 weeks ago DLP: 1126 mGycm, Automated exposure control for dose reduction was used. CONTRAST: None CT of the brain is performed utilizing 3 mm thick sections through the posterior fossa and 3 mm thick sections through the remaining calvarium. Study is performed within 24 hours of [facility] to the hosp [facility]. No abnormal hyperdensity is present to suggest an acute intracranial hemorrhage. No mass lesion is evident. No acute infarcts are evident. Ventricles and sulci are appropriate for the patient age. Paranasal sinuses and mastoid air cells within the [id number] are clear. IMPRESSION: 1. No acute intracranial process. Follow-up MRI can be performed as clinically indicated.
== END | disposition home or self-care (01) ==
LOC: RADCTMAIN 11:20
PROVIDERS: ATTEND Family Medicine
DX: S09.90XA Unspecified injury of head, initial encounter (principal); X58.XXXA Exposure to other specified factors, initial encounter
CPT/HCPCS: 70450

== ENCOUNTER → 2023-05-19 | Outpatient (CLI) | payer OTHER ==
--- NOTE | 2023-05-19 14:49 | MM ---
Reason for Exam: Screening (asymptomatic). Last mammogram was performed 1 year(s) and 4 month(s) ago. Patient History: Menarche at age 14. Patient has no children. Postmenopausal. Risk Values: Alix 5 year model risk: 1.4%. NCI Lifetime model risk: 8.7%. Prior Study Comparison: 11/27/2018 Screening Mammogram, [facility]. 01/11/2021 Bilateral Screening Mammogram, [facility]. 02/14/2022 Bilateral MG screening mammo w CAD, [facility]. Tissue Density: There are scattered fibroglandular densities. Findings: Analyzed By CAD. The pattern is symmetrical. There are benign round calcifications are within the left breast. Few scattered calcifications are within the right breast. No significant interval changes are evident. No suspicious groups of microcalcifications, spiculated or lobular masses, architectural distortion or other secondary signs of malignancy are mammographically apparent. Overall Assessment: Benign, BI-RAD 2 Management: Screening Mammogram of both breasts in 1 year. A negative mammogram report should not preclude additional follow up of suspicious palpable abnormalities. Patient should continue monthly self breast exam. A clinical breast exam by your physician is recommended on an annual basis and results should be correlated with mammographic findings. Electronically signed and approved by: Leo James D.O. Radiologis
== END | disposition home or self-care (01) ==
LOC: RADMAMWWP 10:38
PROVIDERS: ATTEND Family Medicine
DX: Z12.31 Encounter for screening mammogram for malignant neoplasm of breast (principal); Z78.0 Asymptomatic menopausal state
CPT/HCPCS: 77067

== ENCOUNTER 2024-01-30 12:16 | Emergency (ER) | payer OTHER ==
[2024-01-30 12:25] VITALS: RESP 18; TEMP 97
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
[2024-01-30 15:23] VITALS: BP 110/71; PULSE 81
== END 2024-01-30 15:23 | disposition home or self-care (01) ==
LOC: EC 12:16
DX: M25.512 Pain in left shoulder (principal); R07.89 Other chest pain; Z88.6 Allergy status to analgesic agent; V89.2XXA Person injured in unspecified motor-vehicle accident, traffic, initial encounter; Y92.410 Unspecified street and highway as the place of occurrence of the external cause
CPT/HCPCS: 71046; 93005; 99284

== ENCOUNTER → 2024-06-17 | Outpatient (CLI) | payer OTHER ==
--- NOTE | 2024-06-18 07:24 | MM ---
Reason for Exam: Screening (asymptomatic). Last screening mammogram was performed 12 month(s) ago. Patient History: Menarche at age 14. Patient has no children. Postmenopausal. Risk Values: Alix 5 year model risk: 1.5%. NCI Lifetime model risk: 8.5%. Prior Study Comparison: 01/11/2021 Bilateral Screening Mammogram, [facility]. 02/14/2022 Bilateral MG screening mammo w CAD, [facility]. 05/19/2023 Bilateral MG screening mammo w CAD, [facility]. Tissue Density: There are scattered areas of fibroglandular density. Findings: Analyzed By CAD. There is no suspicious group of microcalcifications or new suspicious mass in either breast. Overall Assessment: Negative, BI-RAD 1 Management: Screening Mammogram of both breasts in 1 year. . Patient should continue monthly self-breast exams. A clinical breast exam by your physician is recommended on an annual basis. This exam should not preclude additional follow-up of suspicious palpable abnormalities. Note on Alix scores and lifetime risk: 1. A Alix score greater than 3% is considered moderate risk. If this is the case, consider specialist referral to assess eligibility for a risk reducing agent. 2. If overall lifetime risk for the development of breast cancer is 20% or higher, the patient may qualify for future screening with alternating mammogram and breast MRI. [facility], , 06/18/2024 7:21 AM. Electronically signed and approved by: Nelson Sauceda M.D. Radiologis
== END | disposition home or self-care (01) ==
LOC: RADMAMWWP 16:28
PROVIDERS: ATTEND Family Medicine
DX: Z12.31 Encounter for screening mammogram for malignant neoplasm of breast (principal); R92.323 Mammographic fibroglandular density, bilateral breasts; Z78.0 Asymptomatic menopausal state
CPT/HCPCS: 77063; 77067

== ENCOUNTER → 2024-06-18 | Outpatient (CLI) | payer OTHER ==
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
== END | disposition home or self-care (01) ==
LOC: RADXRMAIN 09:40
PROVIDERS: ATTEND Family Medicine
DX: R68.84 Jaw pain (principal)
CPT/HCPCS: 70110